=== PATIENT | female | born 1955 | race Caucasian/White ===

== ENCOUNTER → 2016-06-17 | Day surgery (SDC) | payer OTHER ==
[~2016-06-17] MED LIST: BELLADONNA ALKALOIDS/OPIUM 60 MG SUPP RECTAL ONE; CLEO300C2 PO; CYMB60CA PO; EZET10 PO; FUROSEMIDE 20 MG/2 ML VIAL ONE; GENTAMICIN SULFATE 80 MG/2 ML VIAL ONE; IBUP-238 PO; LACTATED RINGER'S 1000 ML INJ 1,000 ML ONE; LEVO25TA36 PO; MEPERIDINE HCL 25 MG/ML VIAL ONE; MIDAZOLAM HCL 2 MG/2 ML VIAL ONE; ONDANSETRON HCL 4 MG/2 ML VIAL IV PUSH ONE; PROPOFOL 200 MG/20 ML AMP IV ONE; SODIUM CHLORIDE 0.9% 20 ML VIAL ONE; SODIUM CHLORIDE 0.9% SOLN 100 ML (PAB) BAG IV ONE
--- NOTE | 2016-06-17 13:02 | TN ---
cc: CODI VAUGHN M.D. DATE OF SURGERY 06/17/2016 PREOPERATIVE DIAGNOSIS 1. Obstructed right ureter 2. Hydronephrosis 3. Gross hematuria 4. History of cervical cancer POSTOPERATIVE DIAGNOSIS 1. Obstructed right ureter 2. Hydronephrosis 3. Gross hematuria 4. History of cervical cancer 5. 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 Moran is a 61-year-old woman who initially presented after an incidental finding of right-sided hydronephrosis and a renal scan was done which showed obstruction of the collecting system. Subsequently, a CT urogram was done which showed no evidence of any obvious source of the obstruction. She subsequently began to have worsening flank pain and gross hematuria and presents now for definitive evaluation. FINDINGS The urethra and bladder neck are within normal limits, however, most of the trigone is distorted and replaced by a sessile and nodular tumor most of it occupying the right side up to the right lateral wall, but the remainder of the bladder is spared of any tumor. The ureteral orifice could not be identified and there was no indigo carmine available for evaluation. There was no trabeculation or diverticula or cellules or calcifications identified. PROCEDURE The procedure as well as risks and benefits were explained to the patient. Informed consent was obtained. The patient was taken to the major operative theater where she was placed in the supine position. The patient was identified as well as the operative site. A universal time-out was performed in standard fashion. At this time, general anesthetic prophylactic intravenous antibiotics consisting of gentamicin 80 mg was administered. After adequate anesthetic, she was placed in the low dorsolithotomy position, prepped and draped in the usual sterile fashion. At this time a 22.5 Telugu obturator and sheath were placed into the bladder. The obturator removed and a 30 lens cystoscope was placed. The 30 degree lens was later changed for a 70 degree lens. The entire bladder was systematically surveyed with the above findings. At this time, after identifying the tumor and photo documentation being obtained, there was obvious distortion of the entire trigone and no obvious evidence of ureteral orifice identified. The decision was made to resect only the area on the right side where the obstructing ureter is, thus the cystoscope was exchanged for an Gregory resectoscope with a right angle loop and using the gyrus system and normal saline, transurethral resection of the right mamta-trigone was performed. There was never any indication of a ureteral orifice on that side, but during the resection, you could see that the tumor was into the muscle. After confirming hemostasis using the coagulation mode and attempting again to identify the ureteral orifice with a lack of indigo carmine since it was not available in the facility, a decision was made to terminate the case. Prior to performing the resection, please note that we did do bladder barbotage with normal saline and sent washings for cytological evaluation. At this time after the resectoscope was removed, the cystoscope was placed back into the bladder to again look for the orifice on that right side, which despite some attempts, was still unsuccessful and after hemostasis was confirmed, the bladder was decompressed. A belladonna and opioid suppository was placed per rectum. The patient was placed back in a supine position, emerged anesthetic without difficulty and transferred to the recovery in stable condition to be discharged home when criteria is met. There were no obvious complications. MD CLEMENTE Reno/JOHN /12:29 PM /12:52 PM
== END | disposition home or self-care (01) ==
LOC: ESDC 08:20
PROVIDERS: ATTEND Urology
DX: N13.30 Unspecified hydronephrosis (principal); R31.0 Gross hematuria; Z85.41 Personal history of malignant neoplasm of cervix uteri; D41.4 Neoplasm of uncertain behavior of bladder
CPT/HCPCS: 00912; 52235; 88307; 88341; 88342; C1769; J1580; J2175; J2250; J2405; J3010; J7120; J1940